=== PATIENT | female | born 1950 | race Caucasian/White ===

== ENCOUNTER 2020-03-15 09:27 | Outpatient (CLI) | payer MEDICARE, SELFPAY ==
--- NOTE | ~2020-03-15 | MM_ITS ---
EXAMINATION: MM screening [facility] BI w jesus HISTORY: Screening mammogram TECHNIQUE: Craniocaudal and mediolateral oblique 3-D tomosynthesis images were obtained and synthetic 2-D images were generated. CAD analysis was submitted and interpreted. COMPARISON: 01/03/2019, 12/31/2017, 12/16/2016 BREAST PARENCHYMAL COMPOSITION: There are scattered areas of fibroglandular density. FINDINGS: Stable masses in the upper outer quadrant of the breasts have the appearance of intramammar y lymph nodes. There is no evidence of suspicious mass, calcification, or architectural distortion to suggest malignancy in either breast. There has been no suspicious interval change. IMPRESSION: 1. No mammographic evidence of malignancy. 2. Recommend routine screening mammography in one year. BI-RADS Category 2: Benign finding(s). Reviewed, dictated and finalized at location A.
== END 2020-03-15 09:28 | disposition home or self-care (01) ==
LOC: ANHIMG 09:35
PROVIDERS: PCP Family Medicine; Visit Provider Family Medicine
DX: Z12.31 Encounter for screening mammogram for malignant neoplasm of breast (principal)
CPT/HCPCS: 77063; 77067

== ENCOUNTER 2021-04-08 08:31 | Outpatient (CLI) | payer MEDICARE, SELFPAY ==
--- NOTE | ~2021-04-08 | MM_ITS ---
EXAMINATION: MM screening [facility] BI w jesus HISTORY: Screening mammogram TECHNIQUE: Craniocaudal and mediolateral oblique 3-D tomosynthesis images were obtained and synthetic 2-D images were generated. CAD analysis was submitted and interpreted. COMPARISON: 03/15/2020, 01/03/2019, 12/31/2017 bilateral digital screening mammogram examinations BREAST PARENCHYMAL COMPOSITION: There are scattered areas of fibroglandular density. FINDINGS: Stable bilateral upper outer quadrant circumscribed intramammary nodes. There is no evidenc e of suspicious mass, calcification, or architectural distortion to suggest malignancy in either [address]. There has been no suspicious interval change. IMPRESSION: 1. No mammographic evidence of malignancy. 2. Recommend routine screening mammography in one year. BI-RADS Category 2: Benign finding(s). Reviewed, dictated and finalized at location A.
== END 2021-04-08 08:32 | disposition home or self-care (01) ==
LOC: ANHIMG 08:32
PROVIDERS: PCP Family Medicine; Visit Provider Family Medicine
DX: Z12.31 Encounter for screening mammogram for malignant neoplasm of breast (principal)
CPT/HCPCS: 77063; 77067

== ENCOUNTER → 2021-10-09 02:57 | Outpatient (CLI) | payer MEDICARE, SELFPAY ==
[2021-10-09 13:11] LABS: Influenza Control Positive
[2021-10-09 19:39] LABS: SARS-CoV-2 RNA PCR Negative
== END ==
PROVIDERS: PCP Family Medicine; Visit Provider Family Medicine
DX: R05.9 Cough, unspecified (principal); R50.9 Fever, unspecified; Z20.822 Contact with and (suspected) exposure to COVID-19
CPT/HCPCS: 87804; C9803; U0003; U0005

== ENCOUNTER 2022-05-16 08:37 | Outpatient (CLI) | payer MEDICARE, SELFPAY ==
--- NOTE | ~2022-05-16 | MM_ITS ---
EXAMINATION: MM screening [facility] BI w jesus HISTORY: Screening mammogram TECHNIQUE: Craniocaudal and mediolateral oblique 3-D tomosynthesis images were obtained and synthetic 2-D images were generated. CAD analysis was submitted and interpreted. COMPARISON: 04/08/2021, 03/15/2020, 01/03/2019 bilateral screening mammogram examinations BREAST PARENCHYMAL COMPOSITION: There are scattered areas of fibroglandular density. FINDINGS: Benign stable intramammary and axillary lymph nodes . There is no evidence of suspicious mass, calcification, or architectural distortion to suggest stephanie gnancy in either breast. There has been no suspicious interval change. IMPRESSION: 1. No mammographic evidence of malignancy. 2. Recommend routine screening mammography in one year. BI-RADS Category 2: Benign Reviewed, dictated and finalized at location B.
== END 2022-05-16 08:38 | disposition home or self-care (01) ==
LOC: ANHIMG 08:39
PROVIDERS: PCP Emergency Medicine; Visit Provider Emergency Medicine
DX: Z12.31 Encounter for screening mammogram for malignant neoplasm of breast (principal)
CPT/HCPCS: 77063; 77067

== ENCOUNTER 2023-05-25 14:05 | Outpatient (CLI) | payer MEDICARE, SELFPAY ==
--- NOTE | ~2023-05-25 | MM_ITS ---
EXAMINATION: MM screening [facility] BI w jesus HISTORY: Screening mammogram TECHNIQUE: Craniocaudal and mediolateral oblique 3-D tomosynthesis images were obtained and synthetic 2-D images were generated. CAD analysis was submitted and interpreted. COMPARISON: 05/16/2022, 04/08/2021, 03/15/2020 BREAST PARENCHYMAL COMPOSITION: There are scattered areas of fibroglandular density. FINDINGS: Stable bilateral intramammary lymph nodes are noted in the upper outer quadrants of the leslie asts. No suspicious mass, calcification, or architectural distortion are identified in either breast to suggest malignancy. There has been no suspicious interval change. IMPRESSION: 1. No mammographic evidence of malignancy. 2. Recommend routine screening mammography in one year. BI-RADS Category 2: Benign finding(s). Reviewed, dictated and finalized at location A.
== END 2023-05-25 14:06 | disposition home or self-care (01) ==
LOC: ANHIMG 14:08
PROVIDERS: PCP Emergency Medicine; Visit Provider Emergency Medicine
DX: Z12.31 Encounter for screening mammogram for malignant neoplasm of breast (principal)
CPT/HCPCS: 77063; 77067

== ENCOUNTER 2023-08-25 03:19 | Day surgery (SDC) | payer MEDICARE, SELFPAY ==
[2023-08-13 14:26] VITALS: BMI 29.7
--- NOTE | 2023-08-21 11:08 | SUR.PREOP ---
Patient called regarding upcoming procedure. Reviewed preop instructions, appointment times, and procedure prep.
[2023-08-25 10:43] VITALS: BP 128/73; PULSE 75; RESP 18; TEMP 36.5; O2SAT 97
[2023-08-25] MEDS: LACTATED RINGERS 1,000 ML 150 ML IV CONT (10:49)
--- NOTE | 2023-08-25 11:10 | PM.HPGS ---
History of Present Illness History of Present Illness Consent: Risks, benefits, and alternatives have been discussed and questions answered. Patient agrees to proceed with procedure. Chief complaint: neoplasm screening Narrative: Pia Wayne is a 73 year old female Presents for screening colonoscopy. Patient's current weight appetite and bowel movements are normal. Patient denies abdominal pain. She has had no bleeding. Family history noncontributory. Previous colonoscopy 10 years ago was unremarkable. Review of Systems Review of Systems: Review of systems noncontributory. [facility] Surgical History Surgical History H/O: hysterectomy History of left cataract surgery (~12/04/20) History of right cataract surgery (~11/27/20) Family History Family History Grandparent Diabetes mellitus Cerebrovascular accident Mother Hypertension Cerebrovascular accident Father Family history of elevated blood lipids Family history of cardiovascular disease Family history of malignant neoplasm Malignant neoplasm of prostate Social History Social History Smoking status: Never smoker Alcohol intake: current Lack of Transportation: No Lack of Food: Never True Current Housing: I Have Housing Concerned About Future Housing: No Difficulty Paying Gas/Electric Bills: No Difficulty Paying for Meds: No Currently Unemployed: No Education: Bachelor's Degree Difficulty w/ Childcare or Family Care: No Meds Home Medications and Allergies Home Medications Medication Instructions Recorded Confirmed Type fexofenadine 180 mg tablet 180 mg PO DAILY 12/19/19 08/13/23 History valacyclovir 1 gram tablet 1,000 mg PO Q12H 12/17/21 08/13/23 History (Valtrex) budesonide-formoterol HFA 160 2 puff inhalation Q12H #10.2 grams 10/07/22 08/13/23 Rx mcg-4.5 mcg/actuation aerosol inhaler (Symbicort) metformin 500 mg tablet See Rx Instructions .Route 05/18/23 08/13/23 Rx .COMPLEX #90 tabs irbesartan 75 mg tablet See Rx Instructions .Route 05/22/23 08/13/23 Rx .COMPLEX #90 tabs fluticasone 232 mcg-salmeterol 14 1 inh inhalation BID 10/26/23 10/26/23 History mcg/actuation breath activated powdr (AirDuo RespiClick) atorvastatin 10 mg tablet See Rx Instructions .Route 08/14/23 08/25/23 Rx .COMPLEX #90 tabs Allergies Allergy/AdvReac Type Severity Reaction Status Date / Time telmisartan Allergy Unknown low Verified 08/25/23 10:40 platelets Vital Signs Vital Signs - 24 hr 08/25/23 10:43 Temperature 97.7 F Pulse Rate 75 Respiratory Rate 18 Blood Pressure 128/73 Pulse Oximetry 97 Oxygen Delivery Room Air Exam Narrative: Physical exam reveals patient to be alert. Vital signs stable. HEENT exam is unremarkable. Patient is anicteric. Lungs are clear to auscultation and percussion. Heart is without murmur or extra sounds. Abdomen bowel sounds are present soft nontender with no organomegaly. Digital external rectal exam normal. Assessment and Plan Assessment and plan (1) Encounter for screening colonoscopy: Code(s): Z12.11 - Encounter for screening for malignant neoplasm of colon Status: Acute Assessment and Plan: Patient presents for screening colonoscopy. She appears to be at average risk for colon polyps. Further recommendations may be given after endoscopy.
--- NOTE | 2023-08-25 11:22 | WPDANESEPPF ---
Anes - Initial Pre Proc Eval Procedure: Operation Date: 08/25/23 11:30 Proposed Procedures p Screening Colonoscopy - Wesley Jimenez MD Date/Time: 08/25/23 11:22 Surgeon: Wesley Jimenez MD Pre Op Diagnosis: neoplasm screening Patient Data Age: 73 Gender: F Height: 1.73 m Weight: 92.1 kg Last Vital Signs Temp 97.7 F 08/25/23 10:43 Pulse 75 08/25/23 10:43 Resp 18 08/25/23 10:43 BP 128/73 08/25/23 10:43 Pulse Ox 97 08/25/23 10:43 O2 Del Method Room Air 08/25/23 10:43 Allergies Allergy/AdvReac Type Severity Reaction Status Date / Time telmisartan Allergy Unknown low Verified 08/25/23 10:40 platelets Home Medications Medication Instructions Recorded Confirmed Type fexofenadine 180 mg tablet 180 mg PO DAILY 12/19/19 08/13/23 History valacyclovir 1 gram tablet 1,000 mg PO Q12H 12/17/21 08/13/23 History (Valtrex) budesonide-formoterol HFA 160 2 puff inhalation Q12H #10.2 grams 10/07/22 08/13/23 Rx mcg-4.5 mcg/actuation aerosol inhaler (Symbicort) metformin 500 mg tablet See Rx Instructions .Route 05/18/23 08/13/23 Rx .COMPLEX #90 tabs irbesartan 75 mg tablet See Rx Instructions .Route 05/22/23 08/13/23 Rx .COMPLEX #90 tabs fluticasone 232 mcg-salmeterol 14 1 inh inhalation BID 08/13/23 08/13/23 History mcg/actuation breath activated powdr (AirDuo RespiClick) atorvastatin 10 mg tablet See Rx Instructions .Route 08/14/23 08/25/23 Rx .COMPLEX #90 tabs Patient hx anesthesia problems: none Family hx anesthesia problems: none Results Review: All pre-operative results and documents have been reviewed as part of the pre-operative evaluation. [facility] Surgical History Surgical History H/O: hysterectomy History of left cataract surgery (~12/04/20) History of right cataract surgery (~11/27/20) Family History Family History Grandparent Diabetes mellitus Cerebrovascular accident Mother Hypertension Cerebrovascular accident Father Family history of elevated blood lipids Family history of cardiovascular disease Family history of malignant neoplasm Malignant neoplasm of prostate Social History Social History Smoking status: Never smoker Alcohol intake: current Lack of Transportation: No Lack of Food: Never True Current Housing: I Have Housing Concerned About Future Housing: No Difficulty Paying Gas/Electric Bills: No Difficulty Paying for Meds: No Currently Unemployed: No Education: Bachelor's Degree Difficulty w/ Childcare or Family Care: No Anes - Eval Final PreProcedure Day of Procedure 08/25/23 11:22 Patient weight: normal Heart: regular rate and rhythm Lungs: clear to auscultation Airway: Mallampati scale class II Neurological: alert and oriented Last oral intake: >/= 8 hours ASA classification: II Emergent: no Anesthetic plan: proceed Anesthesia type and monitoring: general GIVS and standard monitoring Results Review: All pre-operative results and documents have been reviewed as part of the pre-operative evaluation. Informed Consent: The patient's anesthetic plan and its attendant risks and benefits were discussed with the patient/family/POA. Questions were solicited and answers provided to the satisfaction of the patient/family/POA.
[2023-08-25] MEDS: SIMETHICONE ORAL SUSPENSION 20 MG/0.3 ML 30 ML BOTTLE 0.6 ML IRRIGATION (12:22)
--- NOTE | 2023-08-25 12:31 | SUR.OPER ---
[employer]ILL[employer] S[employer]OR OFFICER used oral suction during procedure for excess secretions.
[2023-08-25 12:32] VITALS: BP 98/57; PULSE 81; RESP 24; O2SAT 97
[2023-08-25 12:42] VITALS: BP 111/62; PULSE 81; RESP 17; O2SAT 100
[2023-08-25 12:52] VITALS: BP 122/68; PULSE 76; RESP 17; O2SAT 100
== END 2023-08-25 13:05 | disposition home or self-care (01) ==
PROVIDERS: PCP Emergency Medicine; Visit Provider Internal Medicine Gastroenterology
PROC: 0DJD8ZZ Inspection of Lower Intestinal Tract, Via Natural or Artificial Opening Endoscopic (ICD-10-PCS; CPT 45378; principal; 2023-08-25 11:30)
DX: Z12.11 Encounter for screening for malignant neoplasm of colon (principal); K64.8 Other hemorrhoids; Z79.84 Long term (current) use of oral hypoglycemic drugs; Z79.51 Long term (current) use of inhaled steroids
CPT/HCPCS: G0121; J2704; J7120

== ENCOUNTER 2024-06-10 08:20 | Outpatient (CLI) | payer MEDICARE, SELFPAY ==
[2024-06-10 13:59] LABS: Basophils Absolute Auto 0.1 K/mm3 (0.0-0.1); Basophils Percent Auto 0.9 % (0.2-1.2); Eosinophils Absolute Auto 0.1 K/mm3 (0-0.3); Eosinophils Percent Auto 1.6 % (0-4.4); Hematocrit 46.2 % (37.0-47.0); Immature Granulocyte Absolute 0.02 K/mm3 (0.00-0.031); Immature Granulocyte Percent A 0.3 % (0-0.5); Lymphocytes Absolute Auto 2.12 K/mm3 (0.9-3.2); Lymphocytes Percent Auto 36.9 % (18.3-44.2); Mean Corpuscular HGB Conc 32.5 g/dl (32-36); Mean Corpuscular Hemoglobin 29.6 pg (26-34); Mean Corpuscular Volume 91.1 fl (80-100); Mean Platelet Volume 12.5 fl (7.4-10.4); Monocytes Absolute Auto 0.4 K/mm3 (0.1-0.6); Monocytes Percent Auto 6.4 % (2.6-8.5); Neutrophils Absolute Auto 3.1 K/mm3 (1.3-6.7); Neutrophils Percent Auto 53.9 % (45.5-73.1); Platelet Count Result 148 k/mm3 (150-375); Red Blood Count 5.07 M/mm3 (4.2-5.4); Red Cell Distribution Width 12.8 % (11.5-14.5); White Blood Count 5.7 K/mm3 (4.5-10.0)
[2024-06-10 14:13] LABS: Alanine Aminotransferase 25 U/L (6-35); Albumin Level 4.2 g/dL (3.5-5.1); Alkaline Phosphatase 79 U/L (38-126); Anion Gap 10 mmol/L (4-12); Aspartate Amino Transferase 45 U/L (14-36); Bilirubin,Total 0.5 mg/dL (0.2-1.3); Blood Urea Nitrogen 16 mg/dL (7-17); Calcium 9.3 mg/dL (8.4-10.2); Carbon Dioxide 27 mmol/L (22-30); Chloride 103 mmol/L (98-107); Cholesterol 172 mg/dL (0-200); Estimated Glomerular Filt Rate > 60; Glucose 107 mg/dL (65-110); HDL Direct 39 mg/dL; Potassium 4.3 mmol/L (3.4-5.0); Sodium 140 mmol/L (137-145); Triglycerides 164 mg/dL (<150)
[2024-06-10 14:15] LABS: Hemoglobin A1C 6.1 % (<5.7)
[2024-06-10 14:24] LABS: LDL Cholesterol Direct 102 mg/dL
== END 2024-06-10 08:21 | disposition home or self-care (01) ==
LOC: ANHGOSHLAB 08:22
PROVIDERS: PCP Emergency Medicine; Visit Provider Emergency Medicine
DX: E78.2 Mixed hyperlipidemia (principal); R73.03 Prediabetes; D69.6 Thrombocytopenia, unspecified
CPT/HCPCS: 36415; 80053; 80061; 83036; 85025

== ENCOUNTER 2024-06-13 12:31 | Outpatient (CLI) | payer MEDICARE, SELFPAY ==
[2024-06-13 14:44] LABS: Influenza A QL RT-PCR Negative (Negative); Influenza B QL RT-PCR Negative (Negative); RSV RNA, RT-PCR Negative (Negative); SARS-CoV-2 RNA PCR Negative (Negative)
[2024-06-13 15:29] LABS: Troponin I 0.063 ng/mL (0.000-0.034)
== END 2024-06-13 12:32 | disposition home or self-care (01) ==
PROVIDERS: PCP Emergency Medicine; Visit Provider Emergency Medicine
DX: R00.2 Palpitations (principal); R00.0 Tachycardia, unspecified; Z20.822 Contact with and (suspected) exposure to COVID-19
CPT/HCPCS: 36415; 84443; 84484; 87637

== ENCOUNTER 2024-06-13 15:57 | Inpatient (IN) | payer MEDICARE, SELFPAY ==
--- NOTE | ~2024-06-13 | XR_ITS ---
EXAMINATION: XR chest 2V DATE: 06/13/2024 17:46 INDICATION: Elevated troponin. TECHNIQUE: Frontal and lateral views of the chest were obtained. COMPARISON: None. FINDINGS: There is no pneumonia, pleural effusion, or pneumothorax. The heart is normal. Surgical cli ps in the right upper quadrant are likely from cholecystectomy. IMPRESSION: 1. No acute cardiopulmonary disease. Reviewed, dictated and finalized at location A.
--- NOTE | 2024-06-13 16:00 | ECG_ITS ---
Test Date: 2024-06-13 16:11:45 Measurements Intervals [place] Rate: 98 P: 38 CT: 162 QRS: -41 QRSD: 102 T: 35 QT: 335 QTc: 428 Interpretive Statements SINUS RHYTHM WITH FREQUENT VENTRICULAR PREMATURE COMPLEXES IN A QUADRIGEMINAL PATTERN MARKED LEFT AXIS DEVIATION [QRS AXIS < -30] LOW QRS VOLTAGE IN PRECORDIAL LEADS [QRS DEFLECTION < 1.0 mV IN CHEST LEADS] INCOMPLETE RIGHT BUNDLE BRANCH BLOCK [90+ ms QRS DURATION, TERMINAL R IN V1/V2, 40+ ms S IN I/aVL/V4/V5/V6] MINIMAL VOLTAGE CRITERIA FOR LVH, CONSIDER NORMAL VARIANT [MEETS CRITERIA IN ONE OF: R(aVL), S(V1), R(V5), R(V5/V6)+S(V1)] POOR R WAVE PROGRESSION No previous ECG available for comparison Electronically Signed On 06-14-2024 15:31:28 CDT by Rustam Charlton M.D.
[2024-06-13 16:06] VITALS: BP 148/73; PULSE 72; RESP 15; TEMP 36.5; O2SAT 96
--- NOTE | 2024-06-13 16:10 | ED.ARRPALP ---
HPI - Arrhythmia/Palpitations General Chief Complaint: Arrhythmia/Palpitations <Ramandeep Christine PA-C - Last Filed: 06/14/24 09:36> Stated Complaint: TROP 0.063 <Ramandeep Christine PA-C - Last Filed: 06/14/24 09:36> Time Seen by Provider: 06/13/24 16:11 <Ramandeep Christine PA-C - Last Filed: 06/14/24 09:36> Focused HPI: This is a 73 year old female that presents to the ER for abnormal outpatient blood work. Reports she has been struggling with palpitations the last couple of weeks. Today she had some outpatient blood work which showed her troponin was elevated. She was prompted to be seen in the ER. Reports some shortness of breath. Denies chest pain. GENERAL: Well-appearing, well-nourished, and in no acute distress. HEAD: Normocephalic, atraumatic. CHEST: Clear to auscultation. ?No respiratory distress. HEART: Regular rate and rhythm.? NEURO: ?Alert and oriented x3. Patient screened in triage and initial orders placed.? ?Additional care and disposition to be based upon?diagnostic testing and treatment. <Ramandeep Christine PA-C - Last Filed: 06/14/24 09:36> Focused HPI: This is a 73 year old female that presents to the ER for abnormal outpatient blood work. Reports she has been struggling with palpitations the last couple of weeks. Today she had some outpatient blood work which showed her troponin was elevated. She was prompted to be seen in the ER. Reports some shortness of breath. Denies chest pain. GENERAL: Well-appearing, well-nourished, and in no acute distress. HEAD: Normocephalic, atraumatic. CHEST: Clear to auscultation. ?No respiratory distress. HEART: Regular rate and rhythm.? NEURO: ?Alert and oriented x3. Patient screened in triage and initial orders placed.? ?Additional care and disposition to be based upon?diagnostic testing and treatment. Agree with triage assessment. Patient informed me that these palpitations started at the beginning of summer and are worse when she is exerting herself and subside when she is resting. Patient states that her heart rate will jump up from 60s to 100. She has an upcoming appointment with Dr. Aguilar on Thursday of next week and is scheduled for a Holter monitor Thursday of this week. <Amanuel Menendez MD - Last Filed: 06/13/24 22:52> Related Data Home Medications: Home Medications Medication Instructions Recorded Confirmed fexofenadine 180 mg tablet 180 mg PO DAILY 12/19/19 06/13/24 atorvastatin 10 mg tablet 10 mg PO DAILY 06/13/24 06/13/24 irbesartan 75 mg tablet 75 mg PO DAILY 06/13/24 06/13/24 metformin 500 mg tablet 500 mg PO DAILY 06/13/24 06/13/24 <Ramandeep Christine PA-C - Last Filed: 06/14/24 09:36> Allergies/Adverse Reactions: Allergies Allergy/AdvReac Type Severity Reaction Status Date / Time telmisartan Allergy Unknown low Verified 06/13/24 11:27 platelets <Ramandeep Christine PA-C - Last Filed: 06/14/24 09:36> Review of Systems Review of Systems: All systems are reviewed and are negative unless stated otherwise in the HPI. <Amanuel Menendez MD - Last Filed: 06/13/24 22:52> PMFSH Past Medical History Medical History: Medical History (Updated 06/14/24 @ 09:36 by Ramandeep Christine PA-C) Essential (primary) hypertension Mixed hyperlipidemia <Ramandeep Chirstine PA-C - Last Filed: 06/14/24 09:36> Surgical History Surgical History: Surgical History H/O: hysterectomy History of left cataract surgery (~12/04/20) History of right cataract surgery (~11/27/20) <Ramandeep Christine PA-C - Last Filed: 06/14/24 09:36> Family History Family History: Family History Grandparent Diabetes mellitus Cerebrovascular accident Mother Hypertension Cerebrovascular accident Father Family history of elevated blood lipids Family history of cardiovascular disease Family history of malignant neoplasm
[2024-06-13 18:16] LABS: Basophils Absolute Auto 0.1 K/mm3 (0.0-0.1); Basophils Percent Auto 0.6 % (0.2-1.2); Eosinophils Absolute Auto 0.1 K/mm3 (0-0.3); Hematocrit 43.7 % (37.0-47.0); Hemoglobin 14.7 g/dL (12.0-15.0); Immature Granulocyte Absolute 0.04 K/mm3 (0.00-0.031); Immature Granulocyte Percent A 0.5 % (0-0.5); Lymphocytes Absolute Auto 1.64 K/mm3 (0.9-3.2); Lymphocytes Percent Auto 19.7 % (18.3-44.2); Mean Corpuscular HGB Conc 33.6 g/dl (32-36); Mean Corpuscular Hemoglobin 29.6 pg (26-34); Mean Corpuscular Volume 88.1 fl (80-100); Mean Platelet Volume 11.8 fl (7.4-10.4); Monocytes Absolute Auto 0.6 K/mm3 (0.1-0.6); Monocytes Percent Auto 6.9 % (2.6-8.5); Neutrophils Absolute Auto 5.9 K/mm3 (1.3-6.7); Neutrophils Percent Auto 71.3 % (45.5-73.1); Platelet Count Result 162 k/mm3 (150-375); Red Blood Count 4.96 M/mm3 (4.2-5.4); Red Cell Distribution Width 12.6 % (11.5-14.5); White Blood Count 8.3 K/mm3 (4.5-10.0)
[2024-06-13 18:27] LABS: Alanine Aminotransferase 21 U/L (6-35); Albumin Level 4.3 g/dL (3.5-5.1); Alkaline Phosphatase 68 U/L (38-126); Anion Gap 11 mmol/L (4-12); Aspartate Amino Transferase 27 U/L (14-36); Bilirubin,Total 0.3 mg/dL (0.2-1.3); Blood Urea Nitrogen 20 mg/dL (7-17); Calcium 9.5 mg/dL (8.4-10.2); Carbon Dioxide 25 mmol/L (22-30); Chloride 105 mmol/L (98-107); Estimated CRCL calculation 58 ml/min; Estimated Glomerular Filt Rate > 60; Glucose 111 mg/dL (65-110); Lipase 139 U/L (23-300); Partial Thromboplastin Time 26.1 Seconds (22.3-36.8); Potassium 3.8 mmol/L (3.4-5.0); Prothrombin Time 13.5 Seconds (11.1-14.7); Sodium 141 mmol/L (137-145)
[2024-06-13 18:42] LABS: Troponin I 0.067 ng/mL (0.000-0.034)
[2024-06-13 20:40] VITALS: BP 147/70; PULSE 80; RESP 19; O2SAT 96
[2024-06-13] MEDS: ASPIRIN 81 MG CHEWABLE TABLET 324 MG PO (20:41)
[2024-06-13 21:08] LABS: Magnesium 1.9 mg/dL (1.6-2.3)
--- NOTE | 2024-06-13 21:09 | ECG_ITS ---
Test Date: 2024-06-13 21:09:41 Measurements Intervals [place] Rate: 78 P: 52 [place]: 183 QRS: -38 QRSD: 102 T: 12 QT: 355 QTc: 405 Interpretive Statements SINUS RHYTHM WITH OCCASIONAL VENTRICULAR PREMATURE COMPLEXES LEFT AXIS DEVIATION [QRS AXIS < -30] LOW QRS VOLTAGE IN PRECORDIAL LEADS [QRS DEFLECTION < 1.0 mV IN CHEST LEADS] INCOMPLETE RIGHT BUNDLE BRANCH BLOCK [90+ ms QRS DURATION, TERMINAL R IN V1/V2, 40+ ms S IN I/aVL/V4/V5/V6] POOR R-WAVE PROGRESSION Compared to ECG 06/13/2024 16:11:45 NO SIGNIFICANT CHANGES Electronically Signed On 06-14-2024 15:40:19 CDT by Rustam Charlton M.D.
[2024-06-13 21:15] VITALS: BP 135/76; PULSE 73; PULSE 75; RESP 21; O2SAT 96
[2024-06-13 21:46] LABS: Troponin I 0.073 ng/mL (0.000-0.034)
--- NOTE | 2024-06-13 22:15 | PC.NURSE ---
Notified Lab of add on D-Dimer at this time. Spoke with Radha
[2024-06-13 22:23] LABS: D Dimer 0.28 ug/mL (<0.48)
--- NOTE | 2024-06-13 22:49 | PM.IMHP ---
H&P: HPI History of Present Illness Date/Time: 06/13/24 22:49 Chief Complaint: palpitations Narrative: this is a 73-year-old female with past medical history significant for hypertension, diabetes. Presents to the emergency room due to palpitations. Patient denies any syncope, near syncope, had some shortness of breath, fatigue, disease has been ongoing for several months now episode that become more frequent and last longer, Which prompted the patient to come to the emergency room today. Patient denies PND, orthopnea, pedal swelling, leg swelling, cough, sputum production. Preliminary workup was significant for mildly elevated troponin. Patient has been placed in observation for further evaluation management and treatment. EXAMINATION: XR chest 2V DATE: 06/13/2024 17:46 INDICATION: Elevated troponin. TECHNIQUE: Frontal and lateral views of the chest were obtained. COMPARISON: None. FINDINGS: There is no pneumonia, pleural effusion, or pneumothorax. The heart is normal. Surgical clips in the right upper quadrant are likely from cholecystectomy. IMPRESSION: 1. No acute cardiopulmonary disease. Review of Systems Review of Systems: palpitations PMFSH Surgical History Surgical History H/O: hysterectomy History of left cataract surgery (~12/04/20) History of right cataract surgery (~11/27/20) Family History Family History Grandparent Diabetes mellitus Cerebrovascular accident Mother Hypertension Cerebrovascular accident Father Family history of elevated blood lipids Family history of cardiovascular disease Family history of malignant neoplasm Malignant neoplasm of prostate Social History Social History Social History: Caffeine-soda rarely Smoking status: Never smoker Alcohol intake: never Substance use: never Substance use type: does not use Do You Feel Safe in your Home?: Yes Lack of Transportation: No Lack of Food: Never True Current Housing: I Have Housing Concerned About Future Housing: No Difficulty Paying Gas/Electric Bills: No Difficulty Paying for Meds: No Currently Unemployed: No Education: Bachelor's Degree Difficulty w/ Childcare or Family Care: No Spiritual care concerns: No Meds Home Medications and Allergies Home Medications Medication Instructions Recorded Confirmed Type fexofenadine 180 mg tablet 180 mg PO DAILY 12/19/19 06/13/24 History atorvastatin 10 mg tablet 10 mg PO DAILY 06/13/24 06/13/24 History irbesartan 75 mg tablet 75 mg PO DAILY 06/13/24 06/13/24 History metformin 500 mg tablet 500 mg PO DAILY 06/13/24 06/13/24 History Allergies Allergy/AdvReac Type Severity Reaction Status Date / Time telmisartan Allergy Unknown low Verified 06/13/24 11:27 platelets Vital Signs Vital Signs - 24 hr 06/13/24 16:06 06/13/24 20:40 06/13/24 21:15 Temperature 97.7 F Pulse Rate 72 80 73 Respiratory Rate 15 19 Blood Pressure 148/73 H 147/70 H Pulse Oximetry 96 96 Oxygen Delivery Room Air 06/13/24 21:15 Temperature Pulse Rate 75 Respiratory Rate 21 H Blood Pressure 135/76 Pulse Oximetry 96 Oxygen Delivery Exam Narrative: patient is sitting in a stretcher Const: General: comfortable, no acute distress, well developed, alert, awake and average body habitus Nutritional Appearance: average body habitus Orientation/consciousness: patient oriented x3 Other: well-appearing HENMT: Head: normal to inspection, normocephalic and atraumatic Ears: hearing grossly normal bilaterally Face/Nose/Sinus: normal facial exam Face and sinus: normal facial exam Eyes: General: appearance normal, both eyes and all related structures Pupils: Equal, round and reactive pupils present EOM: EOMs intact bilaterally Neck: Neck: full ROM
[2024-06-13] MEDS: HEPARIN SODIUM 5,000 UNITS/ML VIAL 4000 UNITS IV PUSH (23:01)
[2024-06-13] MEDS: HEPARIN SOD/D5W 100 UNITS/ML 25,000 UNITS/250 ML BAG 9 UNITS IV CONT (23:01)
[2024-06-13 23:06] VITALS: BP 139/89; PULSE 75; RESP 17; O2SAT 94
--- NOTE | 2024-06-13 23:42 | ADMGEN ---
This patient, Pia Wayne, was admitted to -. Patient/family oriented to hospital policies and general routines including ID bracelet, bed and alarms, visiting hours, pain management, procedures, bathroom and other care routines, personal items, smoking policy, room service/diet, and visiting hours. Information on how to activate the Rapid Response Team has been discussed. Patient/Family are encouraged to report perceived risks to care and to ask questions if they do not understand what they are told or what they should do.
[2024-06-14] VITALS (19 sets, daily range): BP systolic 106–145; BP diastolic 55–71; PULSE 62–97; RESP 12–20; TEMP 36.3–36.6; O2SAT 94–98
--- NOTE | 2024-06-14 | ECHO_ITS ---
Patient Info Name: Pia Wayne Age: 73 years : 1950 Gender: Female Ht: 68 in Wt: 206 lbs BSA: 2.15 m2 HR: 66 bpm BP: 145 / 71 mmHg Heart Rhythm: Sinus Rhythm Technical Quality: Fair Exam Date: 06/14/2024 12:07 PM Exam Location: Echo Lab Patient Status: Inpatient Admit Date: 06/13/2024 Staff Ordering Physician: Georgie Vu MD [employer] Aide Teacher: Dionisio Henning RDCS Attending Provider: Thomas Leavitt MD Exam Type: CA echo dop color flow w con Study Info Indications R00.2 - Palpitations I21.4 - Non-ST elevation (NSTEMI) myocardial infarction Complete two-dimensional, color flow and Doppler transthoracic echocardiogram is performed with contrast to opacify the left ventricle and to improve the deliniation of the left ventricle endocardial borders. Contrast/Agitated Saline Contrast/Ag. Saline: Definity Amount: 2.00 ml Existing IV Access: Yes IV Access Condition: patent with no signs of infiltration Summary 1. Left ventricular chamber dimension is normal. 2. Left ventricular systolic function is normal, estimated at 65-70%. 3. The left ventricular diastolic function is grade I diastolic dysfunction. 4. Right ventricular systolic function is normal. 5. No significant valvular disease. Left Ventricle Left ventricular chamber dimension is normal. Left ventricular systolic function is normal, estimated at 65-70%. There is no increased left ventricular wall thickness. The left ventricular diastolic function is grade I diastolic dysfunction. Right Ventricle Right ventricular chamber dimension is normal. Right ventricular systolic function is normal. Left Atria Left atrial chamber dimension is normal. Right Atria Right atrial chamber dimension is normal. Aortic Valve The aortic valve is trileaflet. There is no aortic valve stenosis. There is no aortic valve regurgitation. There is mild aortic valve calcification. Pulmonic Valve The pulmonic valve is not well visualized. There is trace pulmonic regurgitation. Mitral Valve There is trace mitral valve regurgitation. Tricuspid Valve There is trace tricuspid valve regurgitation. Pericardium/Pleural The pericardium appears epicardial fat pad. There is no pericardial effusion. Inferior Vena Cava Normal inferior vena cava with >50% collapse upon inspiration consistent with normal right atrial pressure, 3 mmHg. Aorta The prox ascending aorta size is normal. Left Ventricular Outflow Tract Name Value Normal LVOT 2D LVOT Diameter 2.08 cm LVOT Doppler LVOT Peak Gradient 3 mmHg LVOT Mean Gradient 1 mmHg LVOT VTI 16.36 cm LVOT VTI/AV VTI Ratio 0.69 LVOT Stroke Volume 55.37 ml LVOT CO 3.80 l/min LVOT CI 1.77 L/min/m2 Pulmonic Valve Name Value Normal PV Doppler
[2024-06-14 01:19] LABS: Troponin I 0.071 ng/mL (0.000-0.034)
[2024-06-14 04:44] LABS: Prothrombin Time 13.8 Seconds (11.1-14.7)
[2024-06-14 04:46] LABS: Partial Thromboplastin Time 70.9 Seconds (22.3-36.8)
[2024-06-14 07:47] LABS: Partial Thromboplastin Time 59.5 Seconds (22.3-36.8)
[2024-06-14] MEDS: ATORVASTATIN 10 MG TABLET PO (09:27)
[2024-06-14] MEDS: LORATADINE 10 MG TABLET PO (09:27)
[2024-06-14] MEDS: IRBESARTAN 75 MG TABLET PO ×2 (09:27→09:28)
[2024-06-14] MEDS: HEPARIN SODIUM 5,000 UNITS/ML VIAL 3000 UNITS IV PUSH (09:29)
[2024-06-14] MEDS: METOPROLOL SUCCINATE EXT REL 50 MG TABCR PO (11:26)
--- NOTE | 2024-06-14 11:37 | PM.CNCAR ---
Assessment and Plan Assessment and plan (1) Frequent PVCs: Code(s): I49.3 - Ventricular premature depolarization Status: Acute Assessment and Plan: Symptomatic. TSH level normal. Will obtain transthoracic echocardiogram. Start Toprol 50mg once daily. (2) Elevated troponin: Code(s): R79.89 - Other specified abnormal findings of blood chemistry Status: Acute Assessment and Plan: Minimally elevated and flat. EKG with frequent PVCs, but no ischemic STTW abnormalities. This does not appear to be an acute coronary syndrome. Will stop the Heparin drip. Echocardiogram ordered and pending. (3) Essential (primary) hypertension: Code(s): I10 - Essential (primary) hypertension Status: Acute Assessment and Plan: Stable. Continue home Irbesartan. Starting Toprol due to PVCs. (4) Mixed hyperlipidemia: Code(s): E78.2 - Mixed hyperlipidemia Status: Acute Assessment and Plan: Continue Atorvastatin. (5) Pre-diabetes: Code(s): R73.03 - Prediabetes Status: Acute Assessment and Plan: Management as per primary team. Plan Recommendations and plan discussed with Hospitalist. History of Present Illness History of Present Illness Consult date/time: 06/14/24 11:37 Requesting physician: Thomas Leavitt MD Consult reason: Other (Palpitations, PVCs, elevated troponin) Reason For Visit: Palpitations Narrative: This is a 73 year old female with hypertension, hyperlipidemia, prediabetes who presented with palpitations. Pia reports having palpitations since the summer, but has had more frequent palpitations over the past few weeks. Associated with lightheadedness. No chest pain. She had an outpatient PCP visit, where labs were checked, including a troponin level, and was found to be minimally elevated at 0.063, therefore, she was sent to the ED. Troponins here are 0.063, 0.067, 0.073, 0.071. TSH level is normal. EKG with sinus rhythm with frequent PVCs in a quadrigeminal pattern, incomplete right bundle branch block. Patient states she has noticed her heart rate going up to the 120s at times. Does notice palpitations with exertion. She is currently feeling well this morning without any symptoms. Has an appointment with Dr. Moreira next week. Was scheduled to get an outpatient Holter monitor this Thursday. Review of Systems Review of Systems: All systems reviewed & are unremarkable except as noted in HPI and below (HPI) [facility] Past Medical History Medical History (Updated 06/14/24 @ 11:43 by Rustam Charlton MD) Essential (primary) hypertension Mixed hyperlipidemia Surgical History Surgical History H/O: hysterectomy History of left cataract surgery (~12/04/20) History of right cataract surgery (~11/27/20) Family History Family History Grandparent Diabetes mellitus Cerebrovascular accident Mother Hypertension Cerebrovascular accident Father Family history of elevated blood lipids Family history of cardiovascular disease Family history of malignant neoplasm Malignant neoplasm of prostate Social History Social History Social History: Caffeine-soda rarely Smoking status: Never smoker Alcohol intake: never Substance use: never Substance use type: does not use Do You Feel Safe in your Home?: Yes Lack of Transportation: No Lack of Food: Never True Current Housing: I Have Housing Concerned About Future Housing: No Difficulty Paying Gas/Electric Bills: No Difficulty Paying for Meds: No Currently Unemployed: No Education: Bachelor's Degree Difficulty w/ Childcare or Family Care: No Spiritual care concerns: No Meds Home Medications and Allergies Home Medications Medication Instructions Recorded Confirmed Type fexofenadine 180 mg tablet 180
--- NOTE | 2024-06-14 12:47 | WPDPN ---
Progress Note: A&P Assessment and Plan (1) Heart palpitations: Code(s): R00.2 - Palpitations Status: Acute (2) Non-ST elevation IN (NSTEMI): Code(s): I21.4 - Non-ST elevation (NSTEMI) myocardial infarction Status: Acute (3) Mixed hyperlipidemia: Code(s): E78.2 - Mixed hyperlipidemia Status: Acute (4) Essential (primary) hypertension: Code(s): I10 - Essential (primary) hypertension Status: Acute (5) Gastro-esophageal reflux disease without esophagitis: Code(s): K21.9 - Gastro-esophageal reflux disease without esophagitis Status: Acute Plan Patient states her heart rate he is stable at rest however given the slight exertion see feels palpitation, symptoms are going wound was symptom but progressively getting and an increase in frequency which led her to come to emergency depart. patient stats she had scheduled herself to consult labor standards director, however her worsening symptoms presented to the ER, patient will be seen by the labor standards director and further recommendation to follow. Subjective Date/time seen: 06/14/24 12:47 Interval history: H&Z-HUN-Tiswotfme: this is a 73-year-old female with past medical history significant for hypertension, diabetes. Presents to the emergency room due to palpitations. Patient denies any syncope, near syncope, had some shortness of breath, fatigue, disease has been ongoing for several months now episode that become more frequent and last longer, Which prompted the patient to come to the emergency room today. Patient denies PND, orthopnea, pedal swelling, leg swelling, cough, sputum production. Preliminary workup was significant for mildly elevated troponin. Patient has been placed in observation for further evaluation management and treatment. Patient states her heart rate he is stable at rest however given the slight exertion see feels palpitation, symptoms are going wound was symptom but progressively getting and an increase in frequency which led her to come to emergency depart. patient stats she had scheduled herself to consult labor standards director, however her worsening symptoms presented to the ER, patient will be seen by the labor standards director and further recommendation to follow. Review of Systems Review of Systems: palpitations All systems reviewed & are unremarkable except as noted in HPI and below (HPI) Exam Narrative: Patient is comfortable, NAD HEENT: eyes are clear and none icteric LUNGS:CTA HEART: RR S1S2 ABD: BS+, Soft and nontender Lower extremities: no edema SKIN: nonjaundiced Neuro: grossly intact. Objective Data Vital Signs Vital Signs: Vital Signs - 24 hr 06/13/24 16:06 06/13/24 20:40 06/13/24 21:15 Temperature 36.5 C Pulse Rate 72 80 73 Respiratory Rate 15 19 Blood Pressure 148/73 H 147/70 H Pulse Oximetry 96 96 Oxygen Delivery Room Air 06/13/24 21:15 06/13/24 23:06 06/14/24 00:35 Temperature Pulse Rate 75 75 76 Respiratory Rate 21 H 17 Blood Pressure 135/76 139/89 Pulse Oximetry 96 94 Oxygen Delivery 06/14/24 01:55 06/14/24 03:59 06/14/24 04:07 Temperature 36.4 C L Pulse Rate 65 65 66 Respiratory Rate 17 20 Blood Pressure 132/55 L Pulse Oximetry 94 98 Oxygen Delivery Room Air 06/14/24 04:00 06/14/24 04:23 06/14/24 06:31 Temperature Pulse Rate 67 92 62 Respiratory Rate Blood Pressure Pulse Oximetry Oxygen Delivery 06/14/24 07:33 06/14/24 11:26 06/14/24 11:39 Temperature 36.4 C 36.4 C L Pulse Rate 66 74 95 Respiratory Rate 14 16 Blood Pressure 145/71 H 106/64 Pulse Oximetry 98 96 Oxygen Delivery Intake/Output Intake/Output: Intake & Output 06/11/24 06/12/24 06/13/24 06/14/24 23:59 23:59 23:59 23:59 Intake Total 658.9 Output Total 200 Balance 458.9 Meds/Results Medications: Active Medications Generic Name Dose Route Start Last Admin Trade Name Freq PRN Reason Stop Dose Admin Missael
[2024-06-14] MEDS: PERFLUTREN LIPID MICROSPHERES 1.5 ML VIAL DILUTED TO 10 ML TOTAL VOLUME IV PUSH (13:17)
--- NOTE | 2024-06-14 13:17 | IVDEFINITY ---
Prior to administration of IV Definity the patient was educated on the risks and benefits of the imaging enhancing agent including potential adverse side effects. The patient verbalized understanding. Allergies were verified. No exclusion criteria were identified and at least one of the following inclusion criteria were met: 1) physician request, 2) patient technically difficult to image (per the [place] [employer] Echocardi[employer] guidelines of two or more segments not discernable within the apical view), or 3) questionable left ventricular function. ?
[2024-06-15] VITALS (7 sets, daily range): BP systolic 123–143; BP diastolic 49–74; PULSE 64–83; RESP 18–20; TEMP 36.2–36.5; O2SAT 96–98; BMI 30.7
[2024-06-15] MEDS: ACETAMINOPHEN 500 MG TABLET 1000 MG PO (05:49)
--- NOTE | 2024-06-15 08:35 | PM.PNCARD ---
Progress Note: A&P Assessment and Plan (1) Frequent PVCs: Code(s): I49.3 - Ventricular premature depolarization Status: Acute Plan 73-year-old lady with a palpitations and ventricular ectopic activity noted on telemetry and ECG. She is on metoprolol 50 mg daily and is feeling well. In my opinion she is stable enough for discharge. I will arrange for a Lexiscan nuclear stress test in the office because of the observation that exertion is associated with the symptoms. The patient will be seen in my office following the stress testing for further evaluation and assessing response to beta-hyacinth treatment. She is stable enough for discharge at this time on her metoprolol August Moreira MD [facility] Subjective Date/time seen: date of service:06/15/24 08:35 Interval history: Follow-up visit in this 73-year-old lady with: Palpitations with ventricular ectopic activity noted on telemetry and ECG. Echocardiogram demonstrates normal left ventricular systolic function and no significant valvular dysfunction. Metoprolol has been appropriately started. She is feeling well and is essentially asymptomatic this morning. She does report some correlation of these palpitations with exertion. No ischemic chest pain Exam Const: General: comfortable and no acute distress HENMT: Mouth: Yes moist mucous membranes Eyes: Sclera: sclerae normal Neck: Neck: supple and no JVD Thyroid: thyroid normal Resp: Effort & Inspection: normal respiratory effort Auscultation: clear to auscultation bilaterally Cardio: Rate: regular rate Rhythm: regular rhythm Other: no murmur no gallop no rub GI: GI Palp: Yes Soft to palpation Auscultation: normal bowel sounds Skin: General skin exam: normal color Neuro: Other: normal cognition, alert and oriented Extrem: General: normal to inspection Objective Data Vital Signs Vital Signs: Vital Signs - 24 hr 06/14/24 11:26 06/14/24 11:39 06/14/24 10:00 Temperature 36.4 C L Pulse Rate 74 95 73 Respiratory Rate 16 Blood Pressure 106/64 Pulse Oximetry 96 Oxygen Delivery 06/14/24 12:00 06/14/24 12:00 06/14/24 14:00 Temperature Pulse Rate 68 67 Respiratory Rate Blood Pressure Pulse Oximetry Oxygen Delivery Room Air 06/14/24 16:00 06/14/24 16:00 06/14/24 16:00 Temperature 36.3 C L Pulse Rate 67 67 Respiratory Rate 12 Blood Pressure 124/69 Pulse Oximetry 98 Oxygen Delivery Room Air 06/14/24 17:49 06/14/24 20:14 06/14/24 20:00 Temperature 36.6 C Pulse Rate 97 69 Respiratory Rate 18 Blood Pressure 127/65 Pulse Oximetry 96 Oxygen Delivery Room Air 06/14/24 20:00 06/14/24 23:43 06/15/24 00:00 Temperature 36.5 C Pulse Rate 74 70 Respiratory Rate 18 Blood Pressure 137/62 Pulse Oximetry 98 Oxygen Delivery Room Air 06/15/24 00:00 06/15/24 04:00 06/15/24 04:00 Temperature 36.5 C Pulse Rate 66 69 Respiratory Rate 20 Blood Pressure 123/49 L Pulse Oximetry 96 Oxygen Delivery Room Air 06/15/24 04:00 06/15/24 07:20 Temperature 36.3 C L Pulse Rate 78 65 Respiratory Rate 18 Blood Pressure 126/56 L Pulse Oximetry 98 Oxygen Delivery Intake/Output Intake/Output: Intake & Output 06/12/24 06/13/24 06/14/24 06/15/24 23:59 23:59 23:59 23:59 Intake Total 1998.9 120 Output Total 200 300 Balance 1798.9 -180 Meds/Results Medications: Active Medications Generic Name Dose Route Start Last Admin Trade Name hSahriar PRN Reason Stop Dose Admin Atorvastatin Calcium 10 mg 06/14/24 09:00 06/14/24 09:27 Atorvastatin 10 Mg Tablet PO 10 mg DAILY ANDREINA Administration Irbesartan 75 mg 06/14/24 09:00 06/14/24 09:28 Irbesartan 75 Mg Tablet PO 75 mg DAILY ANDREINA Administration Loratadine 10 mg 06/14/24 09:00 06/14/24 09:27 Loratadine 10 Mg Tablet PO 10 mg QAM ANDREINA Administration Metoprolol Succinate 50 mg 06/14/24 10:0
[2024-06-15] MEDS: METOPROLOL SUCCINATE EXT REL 50 MG TABCR PO (08:51)
[2024-06-15] MEDS: ATORVASTATIN 10 MG TABLET PO (08:52)
[2024-06-15] MEDS: LORATADINE 10 MG TABLET PO (08:52)
[2024-06-15] MEDS: IRBESARTAN 75 MG TABLET PO (08:52)
--- NOTE | 2024-06-15 11:34 | PM.DS ---
DS: Admitting Diagnosis Discharge Date 06/15/24 Admitting Diagnosis Palpitations DS: Discharge Diagnosis Discharge Diagnosis (1) Heart palpitations: Code(s): R00.2 - Palpitations Status: Acute (2) Elevated troponin: Code(s): R79.89 - Other specified abnormal findings of blood chemistry Status: Acute (3) Mixed hyperlipidemia: Code(s): E78.2 - Mixed hyperlipidemia Status: Acute (4) Essential (primary) hypertension: Code(s): I10 - Essential (primary) hypertension Status: Acute (5) Gastro-esophageal reflux disease without esophagitis: Code(s): K21.9 - Gastro-esophageal reflux disease without esophagitis Status: Acute DS: Summary Hospital Course Reason for hospitalization: 73yo female with HTN, HLD and pre-DM here for palpitations. Please see H&P for details. Hospital Course: Patient has been having palpitations frequently over the past few weeks associated with lightheadedness. No chest pain. Outside lab work showed mildly elevated troponin and patient was sent to the emergency room for evaluation. EKG showed normal sinus rhythm with frequent PVCs, marked left axis deviation, low voltage, incomplete right bundle branch block, minimal voltage criteria for LVH and poor R-wave progression. Repeat EKG showed no significant change. Labwork was unrevealing. TSH was normal. Troponin peaked at 0.073 but overall was flat. Cardiology was consulted. Echocardiogram showed EF of 65-70% with grade 1 diastolic dysfunction. No significant valvular disease. Chest x-ray was clear. Patient was started on metoprolol. Symptoms improved. Outpatient stress test is being planned. She overall did well and was able be discharged home on 06/15/2024. Status at Discharge Cognitive/behavioral status at discharge: Stable Time Spent with Patient Time attestation: Total time spent providing and/or coordinating discharge services: 32 minutes Time spent: Greater than 30 minutes Exam Narrative: AF 97.1 143/74 64 18 98% ra Gen - NARD Chest - CTA bilaterally, nml RR CV - RRR S1/S2. Tele showing no significant dysrhythmia Abd - Soft, NT/ND, Positive BS Ext - No pedal edema. Negative Homans Neuro - Alert and oriented. Nonfocal exam. Psych - Nml mood and affect Skin - Warm and dry Discharge Plan Discharge Attending physician on discharge: Girma Davies Consulting providers: Tiffany Bansal Discharging Clinician: Girma Davies Anticipated Discharge Date/Time: 06/15/24 11:42 Patient Disposition: Home, Self-Care Activity: as tolerated Diet: heart healthy Discharge Instructions: Contact your doctor or call 911 and come to the Emergency Room if you have chest pain or other worrisome symptoms. Avoid NSAIDs (ibuprofen, naproxen, Aleve). Tylenol is safe to take. Follow-up with your primary care provider in 1-2 weeks. Please call for appointment. A stress test is being arranged for you. Follow-up with Cardiology after the stress test to discuss results. 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 Thank you for using [facility] for your health care needs. Patient Instructions: Antibiotic Form, Heparin (By injection), High Troponin Levels (GEN) Stand Alone Forms: General Discharge Information Follow-up/Referrals: Dao San MD [Primary Care Provider] - Call for Appointment Tiffany Bansal, PLANTING MACHINE OPERATOR-C [Advanced Practice Nurse] - Call for Appointment Discharge Medications: New aspirin 81 mg capsule 81 mg PO DAILY Qty: 30 0RF metoprolol succinate 50 mg Tablet Extended Release 24 Hr 50 mg PO QAM Qty: 30 2RF Continued fexofenadine 180 mg tablet 180 mg PO DAILY metformin 500 mg tablet 500 mg PO DAILY atorvastatin 10 mg tablet 10 mg PO DAILY irbesartan 75 mg tablet 75 mg PO DAILY Date of admission: 06/13/24 22:49 Primary Car
== END 2024-06-15 12:18 | disposition home or self-care (01) | DRG 310 ==
LOC: ANHED 22:19 → ANHIMU 23:46
PROVIDERS: Family Medicine; Physician Assistant; Admitting Provider Internal Medicine; Emergency Provider Emergency Medicine; PCP Emergency Medicine; Visit Provider Internal Medicine
DX: R00.2 Palpitations (principal); I49.3 Ventricular premature depolarization; I10 Essential (primary) hypertension; E78.2 Mixed hyperlipidemia; K21.9 Gastro-esophageal reflux disease without esophagitis
CPT/HCPCS: 36415; 71046; 80053; 80061; 83036; 83690; 83735; 84443; 84484; 85025; 85380; 85610; 85730; 87637; 93005; 99291; A9270; C8929; J1644; Q9957

== ENCOUNTER 2024-06-17 13:33 | Outpatient (CLI) | payer MEDICARE, SELFPAY ==
--- NOTE | 2024-06-21 16:35 | WPDHOLTEREM ---
Holter/Event Monitor Holter/Event Monitor Date of procedure: 06/21/24 Holter/Event Procedure: 48 Hr Holter Monitor Diagnosis: Palpitations Indications: Palpitations Image/Tracing Quality: Adequate. Total analysis of 47 hours and 59 minutes. Findin. Predominant rhythm is sinus rhythm with an average heart rate of 69 beats per minute. The minimum heart rate was 45 beats per minute. The maximum heart rate was 121 beats per minute. 2. No evidence of atrial fibrillation, SVT, pauses, heart block. 3. PAC burden of 0.1%. 4. PVC burden of 5.3%, including single PVCs, couplets, ventricular bigeminy, ventricular trigeminy, and non-sustained VT (NSVT) 5. Patient reported two episodes of palpitations that correlated to normal sinus rhythm at a heart rate of 87 beats per minute and normal sinus rhythm at a heart rate of 88 beats per minute. Conclusion: 1. Sinus rhythm with an average heart rate of 69 beats per minute. 2. PVC burden of 5.3%, including single PVCs, couplets, ventricular bigeminy, ventricular trigeminy, and non-sustained VT (NSVT) 3. Patient's symptoms correlated to normal sinus rhythm.
== END 2024-06-17 13:34 | disposition home or self-care (01) ==
LOC: ANHCARD 13:34
PROVIDERS: PCP Emergency Medicine; Visit Provider Emergency Medicine
DX: R00.0 Tachycardia, unspecified (principal); R00.2 Palpitations
CPT/HCPCS: 93225; 93226

== ENCOUNTER 2024-10-06 09:06 | Outpatient (CLI) | payer MEDICARE, SELFPAY ==
--- NOTE | ~2024-10-06 | MM_ITS ---
EXAMINATION: MM screening nkechi BI w jesus HISTORY: Screening TECHNIQUE: Craniocaudal and mediolateral oblique 3-D tomosynthesis images were obtained and synthetic 2-D images were generated. CAD analysis was submitted and interpreted. COMPARISON: Comparison to multiple prior studies sequentially, with oldest reviewed study dated 12/31. BREAST PARENCHYMAL COMPOSITION: Not dense: There are scattered areas of fibroglandular density. FINDINGS: There is no evidence of suspicious mass, calcification, or architectural distortion to sugg est malignancy in either breast. There has been no suspicious interval change. IMPRESSION: 1. No mammographic evidence of malignancy. 2. Recommend routine screening mammography in one year. BI-RADS Category 1: Negative Reviewed, dictated and finalized at location [] BUILDER
== END 2024-10-06 09:07 | disposition home or self-care (01) ==
LOC: ANHIMG 09:08
PROVIDERS: PCP Family Medicine; Visit Provider Family Medicine
DX: Z12.31 Encounter for screening mammogram for malignant neoplasm of breast (principal)
CPT/HCPCS: 77063; 77067

== ENCOUNTER 2024-12-16 07:58 | Outpatient (CLI) | payer MEDICARE, SELFPAY ==
[2024-12-16 11:33] LABS: Alanine Aminotransferase 26 U/L (6-35); Alkaline Phosphatase 76 U/L (38-126); Anion Gap 8 mmol/L (4-12); Aspartate Amino Transferase 47 U/L (14-36); Bilirubin,Total 0.5 mg/dL (0.2-1.3); Blood Urea Nitrogen 18 mg/dL (7-17); Calcium 9.2 mg/dL (8.4-10.2); Carbon Dioxide 28 mmol/L (22-30); Chloride 105 mmol/L (98-107); Estimated Glomerular Filt Rate > 60; Glucose 108 mg/dL (65-110); Potassium 4.3 mmol/L (3.4-5.0); Sodium 141 mmol/L (137-145)
== END 2024-12-16 07:59 | disposition home or self-care (01) ==
LOC: ANHGOSHLAB 07:59
PROVIDERS: PCP Family Medicine; Visit Provider Family Medicine
DX: R73.03 Prediabetes (principal); E78.5 Hyperlipidemia, unspecified
CPT/HCPCS: 36415; 80053; 83036

== ENCOUNTER 2025-05-26 09:13 | Outpatient (CLI) | payer MEDICARE, SELFPAY ==
--- OUTSIDE RECORDS SUMMARY | 2025-05-26 09:16 | XMS_ITS | Clinical Summary ---
Author [place] [facility] [place] [address] Address [address] [place] [address] Care Team Providers Care Hospitality Host Name Role Phone Dao San MD Primary Care Provider [phone] Allergies No known active allergies Medications metoprolol XL (TOPROL-XL) 50 mg extended release tablet Take 1 tablet (50 mg total) by mouth every morning 06/15/2024 Active metFORMIN (GLUCOPHAGE) 500 mg tablet Take 1 tablet (500 mg total) by mouth daily 04/30/2024 Active atorvastatin (LIPITOR) 10 mg tablet Take 1 tablet (10 mg total) by mouth daily 06/08/2024 Active irbesartan (AVAPRO) 75 mg tablet Take 1 tablet (75 mg total) by mouth daily 05/18/2024 Active aspirin 81 mg enteric coated tablet Take 1 tablet (81 mg total) by mouth daily Active fexofenadine (JAMES) 180 mg tablet Take 1 tablet (180 mg total) by mouth daily Active Active Problems Problem Noted Date Diagnosed Date PVC's (premature ventricular contractions) 06/22 Surgical History Surgery Date Site/Laterality Comments CHOLECYSTECTOMY TONSILLECTOMY HYSTERECTOMY Medical History Medical History Date Comments Hyperlipidemia Hypertension GERD (gastroesophageal reflux disease) Family History Medical History Relation Name Comments Heart disease Father Hyperlipidemia Father Hypertension Mother Relation Name Status Comments Father Mother Social History Tobacco Use Types Packs/Day Years Used Date Smoking Tobacco: Never Smokeless Tobacco: Never Tobacco Cessation:Counseling Given: Not Answered Personal Safety Answer Date Recorded Getting School Help Needed Not on file 06/13 Comments Unknown Sex and Gender Information Value Date Recorded Sex Assigned at Not on file Legal Sex Female 1:18 PM CDT Gender Identity Not on file Sexual Orientation Not on file Obstetrics History Last Filed Vital Signs Vital Sign Reading Time Taken Comments Blood Pressure 120/78 06/22/2024 11:48 AM CDT Pulse 78 06/22/2024 11:48 AM CDT Temperature - - Respiratory Rate 16 06/22/2024 11:48 AM CDT Oxygen Saturation - - Inhaled Oxygen Concentration - - Weight 93.4 kg (206 lb) 06/22/2024 11:48 AM CDT Height 172.7 cm (5' 8) 06/22/2024 11:48 AM CDT Body Mass Index 31.32 06/22/2024 11:48 AM CDT Plan of Treatment Health Maintenance Due Date Last Done Comments Breast Cancer Screening-Mammogram 1950 Colon Cancer Screening-Colonoscopy 1950 Depression Screening 1950 Fall Risk Assessment 1950 Hepatitis C Screening 1950 Osteoporosis Screening-Bone Density Scan 1950 DTaP/Tdap/Td Vaccine (1 - Tdap) 1961 Hepatitis B Screening 1968 Pneumococcal vaccine 65+ (1 of 1 - PCV) 2000 Zoster Vaccine (1 of 2) 2000 Well Visit 65+ 2015 Covid-19 Vaccine (2023-2 5 season) 2024 07/20/2023, 07/13/2022, 01/28/2022, Additional history exists Influenza Vaccine (#1) 2025 , 07/13/2022, 07/16/2021, Additional history exists Insurance MEDICARE [facility] Care Teams Hospitality Host Relationship Specialty Start Date End Date Dao San MD [facility] [address] [place] [id number] PCP - General Family Medicine 06/13/24
[2025-05-26 13:10] LABS: Hematocrit 44.1 % (37.0-47.0); Hemoglobin 14.1 g/dL (12.0-15.0); Immature Granulocyte Percent A 0.5 % (0-0.5); Lymphocytes Absolute Auto 1.60 K/mm3 (0.9-3.2); Mean Corpuscular HGB Conc 32.0 g/dl (32-36); Mean Corpuscular Hemoglobin 28.7 pg (26-34); Mean Corpuscular Volume 89.6 fl (80-100); Nucleated Red Blood Cells Absolute Auto 0.000 K/mm3 (0.0-0.012); Nucleated Red Blood Cells Perc 0.0 % (0.0-0.2); Platelet Count Result 156 k/mm3 (150-375); Red Blood Count 4.92 M/mm3 (4.2-5.4); White Blood Count 5.7 K/mm3 (4.5-10.0)
[2025-05-26 13:15] LABS: Alanine Aminotransferase 22 U/L (6-35); Albumin Level 4.1 g/dL (3.5-5.1); Alkaline Phosphatase 65 U/L (38-126); Anion Gap 7 mmol/L (4-12); Aspartate Amino Transferase 37 U/L (14-36); Bilirubin,Total 0.3 mg/dL (0.2-1.3); Blood Urea Nitrogen 18 mg/dL (7-17); Calcium 9.3 mg/dL (8.4-10.2); Carbon Dioxide 26 mmol/L (22-30); Chloride 107 mmol/L (98-107); Cholesterol 170 mg/dL (0-200); Estimated Glomerular Filt Rate > 60; Glucose 109 mg/dL (65-110); HDL Direct 40 mg/dL; Potassium 5.0 mmol/L (3.4-5.0); Sodium 140 mmol/L (137-145); Total Protein 7.4 g/dL (6.3-8.2); Triglycerides 132 mg/dL (<150)
== END 2025-05-26 09:14 | disposition home or self-care (01) ==
PROVIDERS: PCP Family Medicine; Visit Provider Family Medicine
DX: E78.5 Hyperlipidemia, unspecified (principal)
CPT/HCPCS: 36415; 80053; 80061; 85025

== ENCOUNTER 2025-08-04 08:15 | Outpatient (CLI) | payer MEDICARE, SELFPAY ==
--- OUTSIDE RECORDS SUMMARY | 2025-08-04 08:23 | XMS_ITS | Clinical Summary ---
Author Organization [facility] [place] [address] Address [address] [place] [address] Care Team Providers Care Ship Design Teacher Name Role Phone Dao San MD Primary Care Provider [phone] Allergies No known active allergies Medications metoprolol [...] Health Maintenance Due Date Last Done Comments Colon Cancer Screening-Colonoscopy 1950 Depression Screening 1950 Fall Risk Assessment 1950 Hepatitis C Screening 1950 Osteoporosis Screening-Bone Density Scan 1950 DTaP/Tdap/Td Vaccine (1 - Tdap) 1961 Hepatitis B Screening 1968 Pneumococcal vaccine 65+ (1 of 1 - PCV) 2000 Zoster Vaccine (1 of 2) 2000 Well Visit 65+ 2015 Covid-19 Vaccine (7 - 2024-2 6 season) 2025 07/20/2023, 07/13/2022, 01/28/2022, Additional history exists Influenza Vaccine (#1) 2025 , 07/13/2022, 07/16/2021, Additional history exists Insurance MEDICARE [facility] Care Teams Ship Design Teacher Relationship Specialty Start Date End Date Dao San MD [facility] [place] [address] PCP - General Family Medicine 06/13/24
[2025-08-04 13:02] LABS: Alanine Aminotransferase 25 U/L (6-35); Albumin Level 4.0 g/dL (3.5-5.1); Alkaline Phosphatase 73 U/L (38-126); Anion Gap 6 mmol/L (4-12); Aspartate Amino Transferase 55 U/L (14-36); Bilirubin,Total 0.4 mg/dL (0.2-1.3); Blood Urea Nitrogen 19 mg/dL (7-17); Calcium 9.1 mg/dL (8.4-10.2); Carbon Dioxide 28 mmol/L (22-30); Chloride 107 mmol/L (98-107); Cholesterol 177 mg/dL (0-200); Estimated Glomerular Filt Rate > 60; Glucose 106 mg/dL (65-110); HDL Direct 39 mg/dL; Potassium 4.3 mmol/L (3.4-5.0); Sodium 141 mmol/L (137-145); Total Protein 7.5 g/dL (6.3-8.2); Triglycerides 156 mg/dL (<150)
[2025-08-04 14:54] LABS: Hemoglobin A1C 5.7 % (<5.7)
== END 2025-08-04 08:16 | disposition home or self-care (01) ==
PROVIDERS: Emergency Medicine; PCP Family Medicine; Visit Provider Family Medicine
DX: E78.5 Hyperlipidemia, unspecified (principal); R73.03 Prediabetes
CPT/HCPCS: 36415; 80053; 80061; 83036

== ENCOUNTER 2025-10-09 10:02 | Outpatient (CLI) | payer MEDICARE, SELFPAY ==
--- NOTE | ~2025-10-09 | MM_ITS ---
EXAMINATION: MM screening nkechi BI w jesus HISTORY: Screening. TECHNIQUE: Craniocaudal and mediolateral oblique 3-D tomosynthesis images were obtained and synthetic 2-D images were generated. CAD analysis was submitted and interpreted. COMPARISON: 2023, 2022, and 2021. BREAST PARENCHYMAL COMPOSITION: Not Dense: There are scattered areas of fibroglandular tissue. FINDINGS: No suspicious masses are seen. There are no suspicious calcifications. No unexplained architectural distortion is seen. There are no skin or nipple abnormalities identified. There is no adenopathy seen on the images submitted. IMPRESSION: No mammographic evidence to suggest malignancy is seen. The patient may return to screening mammography as per ACR guidelines. BI-RADS 1 - Negative. Reviewed, dictated and finalized at location A. ITALITY INTERN
--- OUTSIDE RECORDS SUMMARY | 2025-10-09 11:24 | XMS_ITS | Clinical Summary ---
Author Organization [facility] [place] [address] Address [address] [place] [address] Care Team Providers Care In Home Nanny Name Role Phone Dao San MD Primary Care Provider [phone] Allergies No known active allergies Medications metoprolol [...] on file Sexual Orientation Not on file Last Filed Vital Signs Vital Sign Reading [...] 07/13/2022, 07/16/2021, Additional history exists Insurance MEDICARE [facility] Care Teams In Home Nanny Relationship Specialty Start Date End Date Dao San MD [facility] [facility] [address] [place] [id number] PCP - General Family Medicine 06/13/24
== END 2025-10-09 10:03 | disposition home or self-care (01) ==
PROVIDERS: PCP Family Medicine; Visit Provider Family Medicine
DX: Z12.31 Encounter for screening mammogram for malignant neoplasm of breast (principal)
CPT/HCPCS: 77063; 77067